=== PATIENT | male | born 1960 | race Caucasian/White ===

== ENCOUNTER 2019-05-30 14:21 | Emergency (ER) | payer OTHER, SELFPAY ==
[2019-05-30 15:18] LABS: Absolute Lymphocytes (CBC) 1.5 K/uL (0.7-4.9); Hematocrit 47.9 % (39.6-49.0); Lymphocytes % 22.2 % (15.3-44.8); MPV 8.8 fL (7.6-11.3)
[2019-05-30 15:19] LABS: Protime INR 1.03
--- NOTE | 2019-05-30 15:24 | RAD REPORT ---
EXAM DESCRIPTION: RAD - Chest Single View - 05/30/2019 3:16 pm CLINICAL HISTORY: cva Chest pain. COMPARISON: CHEST PA AND LAT 2 VIEW dated 10/27/2014; CHEST PA AND LAT 2 VIEW dated 05/21/2013 FINDINGS: Portable technique limits examination quality. The lungs are grossly clear. The heart is normal in size. No displaced fractures. IMPRESSION: No acute intrathoracic process suspected.
[2019-05-30 15:33] LABS: ALT/SGPT 24 U/L (12-78); AST/SGOT 15 U/L (15-37); Albumin 4.2 g/dL (3.4-5.0); Alkaline Phosphatase 57 U/L (45-117); BUN Blood Urea Nitrogen 20 mg/dL (7-18); Bicarbonate 29 mmol/L (21-32); Bilirubin Direct 0.2 mg/dL (0-0.2); Bilirubin Total 0.6 mg/dL (0.2-1.0); Glucose Level 133 mg/dL (74-106); Magnesium 1.9 mg/dL (1.8-2.4); NT PRO-BNP 17 pg/mL (<125); Potassium 4.4 mmol/L (3.5-5.1); Protein, Total 7.4 g/dL (6.4-8.2); Sodium Level 140 mmol/L (136-145); Troponin (Emerg Dept Use Only) < 0.02 ng/mL (0.0-0.045)
--- NOTE | 2019-05-30 15:43 | RAD REPORT ---
EXAM DESCRIPTION: CT - Head Brain Wo Cont - 05/30/2019 3:26 pm CLINICAL HISTORY: WEAKNESS Headache, drowsiness COMPARISON: No comparisons TECHNIQUE: All CT scans are performed using dose optimization technique as appropriate and may inclu de automated exposure control or mA/KV adjustment according to patient size. FINDINGS: A cystic mass is present in the right cerebral hemisphere proximally measuring 7.4 x 5.7 c m. Components of this mass appear to extend into the right temporal lobe region and into the preponti ne cistern with mild mass effect on the right aspect of the brainstem. A solid component of the mass is likely present medially measuring 17 x 12 mm.No intracranial hemorrhage seen.Moderate right to lef t midline shift is present approximately 14 mm. Mild left ventricular trapping and dilatation seen. The paranasal sinuses and mastoids are clear. The calvarium is intact. IMPRESSION: Large cystic and solid mass is present in the right cerebral hemisphere with right to le ft midline shift of 14 mm present. The mass also extends to the prepontine cysts are in with mild ma ss effect on the right aspect of the brainstem. The findings were discussed with Dr. Romero in the ER On 05/30/2019 at 3:30 p.m. by telephone.
--- NOTE | 2019-05-30 16:46 | ER ---
Nurse's Notes [facility] Name: Kareem Adkins Age: 59 yrs Sex: Male : 1960 Arrival Date: 05/30/2019 Time: 14:24 Bed 3 Private MD: Diagnosis: Cerebral Mass Presentation: 05/29 14:38 Chief complaint: Patient states: Reports left sided weakness for 1 week. Left leg is ll1 still dragging. Denies GARCIA/CP. No cough/fever. Coronavirus screen: The patient has NOT traveled to a country currently being monitored by the [facility] within the last 14 days. Ebola Screen: Patient denies travel to an Ebola-affected area in the 21 days before illness onset. Initial Sepsis Screen: Does the patient meet any 2 criteria? No. Patient's initial sepsis screen is negative. Risk Assessment: Do you want to hurt yourself or someone else? Patient reports no desire to harm self or others. 14:38 Method Of Arrival: Ambulatory ll1 14:38 Acuity: CATRINA 2 ll1 17:12 Initial Sepsis Screen: Does the patient have a suspected source of infection? No. jl7 Patient's initial sepsis screen is negative. Onset of symptoms is unknown. Historical: - Allergies: 17:01 No Known Allergies; - Home Meds: 17:01 Methocarbamol Oral [Active]; 18:10 metformin 1,000 mg oral tab 2 times per day [Active]; Klonopin 1 mg oral tab BID prn sv [Active]; mirtazapine 15 mg oral tab nightly [Active]; losartan 100 mg oral tab once daily [Active]; trazodone 50 mg Oral tab nightly [Active]; allopurinol 300 mg Oral tab 1 tab once daily [Active]; - PMHx: 17:02 Diabetes - NIDDM; Hypertension; jl - PSHx: 17:01 Appendectomy; 18:10 eye; sv - Immunization history:: Adult Immunizations unknown. - Social history:: Smoking status: Patient denies any tobacco usage or history of. Screenin:02 Abuse screen: Denies threats or abuse. Denies injuries from another. Nutritional jl7 screening: No deficits noted. Tuberculosis screening: No symptoms or risk factors identified. Fall Risk IV access (20 points). Total Palma Fall Scale indicates No Risk (0-24 pts). Assessment: 15:00 General: Appears in no apparent distress. uncomfortable, Behavior is calm, cooperative, jl7 appropriate for age. Pain: Denies pain. Neuro: Level of Consciousness is awake, alert, obeys commands, Oriented to person, place, time, situation, Weakness in left leg(s) Gait is steady, Speech is normal, Facial symmetry appears normal. Cardiovascular: Patient's skin is warm and dry. Respiratory: Airway is patent Respiratory effort is even, unlabored, Respiratory pattern is regular, symmetrical. Derm: Skin is pink, warm \T\ dry. 16:00 Reassessment: Patient appears in no apparent distress at this time. No changes from jl7 previously documented assessment. Patient and/or family updated on plan of care and expected duration. Pain level reassessed. Patient is alert, oriented x 3, equal unlabored respirations, skin warm/dry/pink. 17:00 Reassessment: Patient appears in no apparent distress at this time. Patient and/or jl7 family updated on plan of care and expected duration. Pain level reassessed. Patient is alert, oriented x 3, equal unlabored respirations, skin warm/dry/pink. 18:16 Reassessment: Patient appears in no apparent distress at this time. No changes from sv previously documented assessment. Patient and/or family updated on plan of care and expected duration. Pain level reassessed. Patient is alert, oriented x 3, equal unlabored respirations, skin warm/dry/pink. 19:47 Reassessment: Patient and/or family updated on plan of care and expected duration. Pain ea level reassessed. Patient is alert, oriented x 3, equal unlabored respirations, skin warm/dry/pink. Pt transferred to [facility] at facility for transfer, pt left ED per EMS. Pt tolerating well. Vital Signs: 14:38 BP 127 / 90; Pulse 80; Resp 18; Temp 97.0; Pulse Ox 97% ; Pain 0/10; ll1 15:00 BP 118 / 87; Pulse 78; Resp 20; Pulse Ox 97% ; sv 16:00 BP 144 / 90; Pulse 79; Resp 18; Pulse Ox 95% ; sv 17:00 BP 117 / 89; Pulse 76; Resp 14; Pulse Ox 97% ; sv 17:52 BP 147 / 95; Pulse 70; Resp 16; Pulse Ox 96% ; sv 19:30 BP 152 / 85; Pulse 78; Resp 18; Pulse Ox 98% on R/A; ea NIH Stroke Scale Scores: 16:14 NIHSS Score: 1 [facility] ED Course: 14:24 Patient arrived in ED. fj1 14:39 Triage completed. ll1 14:39 Arm band placed on Patient placed in an exam room. ll1 14:53 Anselmo Hodges [facility]. jr8 14:53 Korey Romero MD is Attending Physician. jr8 14:54 Fernanda Cameron RN is Primary Nurse. jl7 15:16 XRAY Chest (1 view) In Process Unspecified. EDMS 15:27 CT Head Brain wo Cont In Process Unspecified. EDMS 15:31 Patient moved back from CT. sv 16:00 Initial lab(s) drawn, by ED staff, sent to lab. Inserted saline lock: 22 gauge in right jl7 antecubital area, using aseptic technique. Blood collected. 17:02 Patient has correct armband on for positive identification. Bed in low position. Call jl7 light in reach. Side rails up X 1. ignition specialist on. Pulse ox on. NIBP on. 18:16 transfer transportation to receiving facility. sv 19:12 Report given to Estrellita RN, Chintan RN, Albina RN. sv 19:46 Assist provider with bone marrow aspiration. Patient transferred, IV remains in place. ea Administered Medications: 16:50 Drug: Decadron - Dexamethasone 10 mg Route: IVP; Site: right antecubital; jl7 17:30 Follow up: Response: No adverse reaction sv Outcome: 16:44 ER care complete, transfer ordered by . jr8 19:46 Transferred by ground EMS to [facility], Transfer form completed. ea 19:46 Condition: stable 19:46 Instructed on the need for transfer. 19:51 Patient left the ED. ea NIH Stroke Scale - NIH Stroke Score Date: 05/30/2019 Time: 16:14 Total Score = 1 1a. Level of Consciousness (LOC) - 0(Alert) 1b. Level of Consciousness (LOC) (Year \T\ Age) - 0(Both) 1c. LOC Commands (Open \T\ Closes Eyes/Er Registrar) - 0(Both) 2. Best Gaze (Lateral Gaze Paresis) - 0(Normal) 3. Visual Field Loss - 0(No visual loss) 4. Facial Palsy - 0(Normal) 5a. Left Arm: Motor (10-second hold) - 0(No drift) 5b. Right Arm: Motor (10-second hold) - 0(No drift) 6a. Left Leg: Motor (5-second hold - always test supine) - 0(No drift) 6b. Right Leg: Motor (5-second hold - always test supine) - 0(No drift) 7. Limb Ataxia (finger/nose \T\ heel/santamaria - test with eyes open) - 1(Present in one limb) 8. Sensory Loss (pinprick arms/legs/face) - 0(Normal) 9. Best Language: Aphasia (description/naming/reading) - 0(No aphasia) 10. Dysarthria (speech clarity - read or repeat words) - 0(Normal) 11. Extinction and Inattention (visual/tactile/auditory/spatial/personal) - 0(No abnormality) Initials: rupal Signatures: Dispatcher [employer] Sowmya Ames RN RN Anselmo Wright PA PA jr8 Fernanda Cameron RN RN jl7 Estrellita Arredondo RN Jeromy Pettit ea fj1 Grant Mcwilliams RN RN ll1 Corrections: (The following items were deleted from the chart) 18:10 17:01 Home Meds: Metformin Oral; jl7 sv 18:10 17:01 Home Meds: Klonopin Oral; jl7 sv 18:10 17:01 Home Meds: mirtazapine Oral; jl7 sv 18:10 17:01 Home Meds: losartan oral oral; jl7 sv
--- NOTE | 2019-05-30 16:47 | EDPHYS ---
Physician Documentation [facility] Name: Kareem Adkins Age: 59 yrs Sex: Male : 1960 Arrival Date: 05/30/2019 Time: 14:24 Bed 3 Private MD: ED Physician Korey Romero HPI: 05/29 16:14 This 59 yrs old Male presents to ER via Ambulatory with complaints of SENT jr8 FROM DR'S OFFICE FOR POSSIBLE SIGNS OF A STROKE., LEFT SIDE NUMBNESS AND LEFT LEG DRAGGING. 16:14 Onset: The symptoms/episode began/occurred gradually, 1 week(s) ago. Duration: The jr8 episode is continuous. The symptoms are alleviated by nothing. The symptoms are aggravated by walking. Associated signs and symptoms: Pertinent positives: resting tremor and memory loss. Severity of symptoms: At their worst the symptoms were moderate. Patient's baseline: Neuro: alert and fully oriented, Motor: no deficits, Ambulation: walks without assistance, Speech: normal. The patient has not experienced similar symptoms in the past. The patient has been recently seen by a physician:. Patient stated that he has noticed subtle signs of memory problems for last few years. Stated that more recently started to have left sided resting tremor. Within past week had sudden onset left leg weakness and now arm numbness. Denies visual changes or headache . Historical: - Allergies: 17:01 No Known Allergies; - Home Meds: 17:01 Methocarbamol Oral [Active]; 18:10 metformin 1,000 mg oral tab 2 times per day [Active]; Klonopin 1 mg oral tab BID prn sv [Active]; mirtazapine 15 mg oral tab nightly [Active]; losartan 100 mg oral tab once daily [Active]; trazodone 50 mg Oral tab nightly [Active]; allopurinol 300 mg Oral tab 1 tab once daily [Active]; - PMHx: 17:02 Diabetes - NIDDM; Hypertension; jl7 - PSHx: 17:01 Appendectomy; 18:10 eye; sv - Immunization history:: Adult Immunizations unknown. - Social history:: Smoking status: Patient denies any tobacco usage or history of. ROS: 16:14 Eyes: Negative for injury, pain, redness, and discharge, ENT: Negative for injury, jr8 pain, and discharge, Neck: Negative for injury, pain, and swelling, Cardiovascular: Negative for chest pain, palpitations, and edema, Respiratory: Negative for shortness of breath, cough, wheezing, and pleuritic chest pain, Abdomen/GI: Negative for abdominal pain, nausea, vomiting, diarrhea, and constipation, Back: Negative for injury and pain, MS/Extremity: Negative for injury and deformity, Skin: Negative for injury, rash, and discoloration. 16:14 Neuro: Positive for numbness, tremor, weakness. Exam: 16:14 Radiologist reports: See Reading Report jr8 16:14 Eyes: Pupils equal round and reactive to light, extra-ocular motions intact left side. 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 Lids and lashes normal. Conjunctiva and sclera are non-icteric and not injected. Cornea within normal limits. Periorbital areas with no swelling, redness, or edema. ENT: Nares patent. No nasal discharge, no septal abnormalities noted. Tympanic membranes are normal and external auditory canals are clear. Oropharynx with no redness, swelling, or masses, exudates, or evidence of obstruction, uvula midline. Mucous membranes moist. Neck: Trachea midline, no thyromegaly or masses palpated, and no cervical lymphadenopathy. Supple, full range of motion without nuchal rigidity, or vertebral point tenderness. No Meningismus. Cardiovascular: Regular rate and rhythm with a normal S1 and S2. No gallops, murmurs, or rubs. Normal PMI, no JVD. No pulse deficits. Respiratory: Lungs have equal breath sounds bilaterally, clear to auscultation and percussion. No rales, rhonchi or wheezes noted. No increased work of breathing, no retractions or nasal flaring. Abdomen/GI: Soft, non-tender, with normal bowel sounds. No distension or tympany. No guarding or rebound. No evidence of tenderness throughout. Back: No spinal tenderness. No costovertebral tenderness. Full range of motion. Skin: Warm, dry with normal turgor. Normal color with no rashes, no lesions, and no evidence of cellulitis. MS/ Extremity: Pulses equal, no cyanosis. Neurovascular intact. Full, normal range of motion. 16:14 Neuro: Orientation: to person, place, time \T\ situation. Mentation: is normal, Memory: is normal, immediate memory is intact, recent memory is intact, remote memory is intact, Cranial nerves: CN I not tested, CN II- XII are normal as tested, visual [place] are intact. extraocular movements are intact, Facial palsy and sensory deficits are absent. left lateral nystagmus, Speech is clear and appropriate. Tongue strength is normal, Cerebellar function: dysmetria is noted on the left, heel to santamaria testing is normal, Motor: moves all fours, strength is 5/5 in the right hand, left hand, right foot, right arm, left arm and right leg, strength is 4/5 in the left foot and left leg, the no evidence of posturing, Sensation: no obvious gross deficits, Gait: not tested. seizure activity, is not displayed by the patient, Abnormal movements: resting tremor, is located in the left hand and left arm. 16:20 ECG was reviewed by the Attending Physician. [facility] Vital Signs: 14:38 BP 127 / 90; Pulse 80; Resp 18; Temp 97.0; Pulse Ox 97% ; Pain 0/10; ll1 15:00 BP 118 / 87; Pulse 78; Resp 20; Pulse Ox 97% ; sv 16:00 BP 144 / 90; Pulse 79; Resp 18; Pulse Ox 95% ; sv 17:00 BP 117 / 89; Pulse 76; Resp 14; Pulse Ox 97% ; sv 17:52 BP 147 / 95; Pulse 70; Resp 16; Pulse Ox 96% ; sv 19:30 BP 152 / 85; Pulse 78; Resp 18; Pulse Ox 98% on R/A; ea NIH Stroke Scale Scores: 16:14 NIHSS Score: 1 jr8 MDM: 14:53 Patient medically screened. [facility] 16:09 ED course: Dr. Hauser with neurosurgery was consulted at [facility] who accepted jr8 patient for further evaluation of cerebral mass . 16:14 Data reviewed: vital signs, nurses notes, lab test result(s), EKG, radiologic studies, [facility] CT scan. Data interpreted: Pulse oximetry: on room air is 95 %. Interpretation: normal. Counseling: I had a detailed discussion with the patient and/or guardian regarding: the historical points, exam findings, and any diagnostic results supporting the discharge/admit diagnosis, lab results, radiology results, the need to transfer to another facility, [facility] does not immediately have the required specialist. 16:43 ED course: Dr. Boyd with hospital medicine at [facility] accepted patient . 05/29 14:54 Order name: Basic Metabolic Panel; Complete Time: 15:49 05/29 14:54 Order name: CBC with Diff; Complete Time: 15:49 05/29 14:54 Order name: LFT's; Complete Time: 15:49 05/29 14:54 Order name: Magnesium; Complete Time: 15:49 05/29 14:54 Order name: NT PRO-BNP; Complete Time: 15:49 05/29 14:54 Order name: PT-INR; Complete Time: 15:26 05/29 14:54 Order name: Troponin (emerg Dept Use Only); Complete Time: 15:49 05/29 14:54 Order name: XRAY Chest (1 view); Complete Time: 16:05 05/29 14:54 Order name: EKG; Complete Time: 14:56 05/29 14:54 Order name: Cardiac monitoring; Complete Time: 17:13 05/29 14:54 Order name: EKG - Nurse/Tech; Complete Time: 17:05/29 14:54 Order name: IV Saline Lock; Complete Time: 17:05/29 14:54 Order name: CT Head Brain wo Cont; Complete Time: 16:05 05/29 14:54 Order name: Labs collected and sent; Complete Time: 17:13 05/29 14:54 Order name: O2 Per Protocol; Complete Time: 17:05/29 14:54 Order name: O2 Sat Monitoring; Complete Time: 17:12 EC:20 Rate is 82 beats/min. Rhythm is regular, Normal Sinus Rhythm. QRS [place] is Normal. MT jr8 interval is normal at 174 msec. QRS interval is normal at 98 msec. QT interval is normal at 420 msec. No Q waves. T waves are Normal. No ST changes noted. Clinical impression: Normal ECG. Interpreted by me. Reviewed by me. Administered Medications: 16:50 Drug: Decadron - Dexamethasone 10 mg Route: IVP; Site: right antecubital; jl7 17:30 Follow up: Response: No adverse reaction sv Disposition: 05/30 17:09 Co-signature as Attending Physician, Korey Romero MD Did not see or evaluate patient. ps1 Signature for administrative purposes. . Disposition: 05/30/19 16:44 Transfer ordered to [facility]. Diagnosis is Cerebral Mass. - Reason for transfer: Higher level of care. - Accepting physician is Dr. Dixon - Condition is Stable. - Problem is new. - Symptoms are unchanged. NIH Stroke Scale - NIH Stroke Score Date: 05/30/2019 Time: 16:14 Total Score = 1 1a. Level of Consciousness (LOC) - 0(Alert) 1b. Level of Consciousness (LOC) (Year \T\ Age) - 0(Both) 1c. LOC Commands (Open \T\ Closes Eyes/Wharf Tender Head) - 0(Both) 2. Best Gaze (Lateral Gaze Paresis) - 0(Normal) 3. Visual Field Loss - 0(No visual loss) 4. Facial Palsy - 0(Normal) 5a. Left Arm: Motor (10-second hold) - 0(No drift) 5b. Right Arm: Motor (10-second hold) - 0(No drift) 6a. Left Leg: Motor (5-second hold - always test supine) - 0(No drift) 6b. Right Leg: Motor (5-second hold - always test supine) - 0(No drift) 7. Limb Ataxia (finger/nose \T\ heel/santamaria - test with eyes open) - 1(Present in one limb) 8. Sensory Loss (pinprick arms/legs/face) - 0(Normal) 9. Best Language: Aphasia (description/naming/reading) - 0(No aphasia) 10. Dysarthria (speech clarity - read or repeat words) - 0(Normal) 11. Extinction and Inattention (visual/tactile/auditory/spatial/personal) - 0(No abnormality) Initials: jr8 Signatures: Dispatcher [employer] Sowmya Ames, RN Anselmo Reid PA PA jr8 Fernanda Cameron RN JARETT jl7 Estrellita Arredondo RN RN ea Singer, Phillip, MD MD ps1 Corrections: (The following items were deleted from the chart) 05/29 18:10 17:01 Home Meds: Metformin Oral; jlHari 18:10 17:01 Home Meds: Klonopin Oral; jl7 sv 18:10 17:01 Home Meds: mirtazapine Oral; jl7 sv 18:10 17:01 Home Meds: losartan oral oral; jl7 sv 19:51 16:44 05/30/2019 16:44 Transfer ordered to [facility]. Diagnosis is Cerebral Mass. Reason for transfer: Higher level of care. Accepting physician is Dr. Boyd. Condition is Stable. Problem is new. Symptoms are unchanged. jr8
[2019-05-30] MEDS ORDERED: dexAMETHasone 10 MG/ML VIAL ONE ×2 (16:52→16:53)
--- NOTE | 2019-05-30 16:52 | EKG ---
Test Date: 2019-05-30 Test Time: 15:03:01 Basting Machine Operator: ACE MEASUREMENT RESULTS: Intervals: Rate: 82 NV: 174 QRSD: 98 QT: 360 QTc: 420 [place]: P: 29 NV: 174 QRS: 58 T: 40 INTERPRETIVE STATEMENTS: Normal sinus rhythm Normal ECG Compared to ECG 10/27/2014 19:02:37 No significant changes Electronically Signed On 05-30-19 16:51:34 CDT by Zhao Heck
[2019-05-30 19:56] VITALS: TEMP 97
[2019-05-30 20:04] VITALS: BP 152/85; O2SAT 98
== END 2019-05-30 19:51 | disposition short-term general hospital (02) ==
LOC: ER 14:21
DX: G93.9 Disorder of brain, unspecified (principal); I10 Essential (primary) hypertension; E11.9 Type 2 diabetes mellitus without complications
CPT/HCPCS: 93005; 85025; 80048; 36415; 83735; 85610; 80076; 84484; 83880; 70450; 71045; 96374; 99285; J1100